=== PATIENT | female | born 1965 | race Caucasian/White ===

== ENCOUNTER 2017-05-13 11:14 | Emergency (ER) | payer BC ==
[~2017-05-13] VITALS: Ht 177.8 cm; Wt 108.9 kg
[2017-05-13 11:20] VITALS: BP 144/94; Ht 177.8 cm; Wt 108.9 kg
== END 2017-05-13 13:13 | disposition home or self-care (01) ==
LOC: ED 11:14
DX: S60.211A Contusion of right wrist, initial encounter (principal); M25.521 Pain in right elbow; Z88.5 Allergy status to narcotic agent; Z88.1 Allergy status to other antibiotic agents; Z88.8 Allergy status to other drugs, medicaments and biological substances; W18.39XA Other fall on same level, initial encounter; Y93.89 Activity, other specified; Y92.89 Other specified places as the place of occurrence of the external cause; Y99.8 Other external cause status
CPT/HCPCS: A4570